=== PATIENT | male | born 1960 | race Caucasian/White ===

== ENCOUNTER 2023-06-26 12:08 | Outpatient (AMB) | payer OTHER, SELFPAY ==
--- NOTE | 2023-06-26 12:18 | HO.NEPHOV_ITS ---
HPI HPI Comments History of Present Illness Details I had the privilege of seeing Travis in consultation for chronic kidney disease. He has been having stable serum creatinine close to 1.5 or 10 years. He has hearing deficits and has bilateral hearing aids. He denies any microscopic hematuria or proteinuria. Workup done in the past showed him to have multiple renal cysts in 1 kidney. His father had ESRD in 40s and had 3 transplants. His father's siblings also had renal diseases, the details of which is unclear. His father's mom had CKD, etiology of which is unknown. 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 He is on statins. He is on long-term PPI which he takes intermittently. He is not hypertensive and does not carry a diagnosis of diabetes. He does not take any excessive nonsteroidal anti-inflammatories. His blood pressure has been at goal but lately it is trending up. He is not taking any antihypertensive medications. He is otherwise well. He denies epistaxis, hemoptysis, hematemesis, melena, skin rashes, photosensitivity, bone pain. He is not known to have any prostatic issues. He has no history of cancer. He denies any history of coronary artery disease, congestive heart failure, CVA, SOBIA, PAD. His last serum creatinine was 1.5. His brother is known to have liver disease. [facility] Medical History (Updated 06/27/23 @ 04:04 by Rudy Osullivan MD) CKD (chronic kidney disease) Hereditary hemochromatosis Psoriasis Methylenetetrahydrofolate reductase (MTHFR) deficiency GERD (gastroesophageal reflux disease) AARON (obstructive sleep apnea) Gout Surgical History (Updated 06/26/23 @ 12:15 by Mae Copeland MA) H/O repair of rotator cuff Family History (Updated 06/26/23 @ 12:17 by Mae Copeland MA) Father Diabetes Mother Cirrhosis Paternal Grandfather Diabetes Paternal Grandmother Kidney disease Social History (Updated 06/26/23 @ 12:24 by Mae Copeland MA) Alcohol intake: former Patient Tobacco Use Status: Never used Tobacco Vital Signs 06/26/23 12:19 Height 5 ft 10 in Weight 197 lb BMI 28.3 BP 130/90 H Blood Pressure Location Lt brachial Position Sitting Pulse 74 Pulse Source Pulse Oximeter Physical Exam Vital Signs: Last Vital Signs Pulse 74 06/26/23 12:19 BP 130/90 H 06/26/23 12:19 BMI result Body Mass Index 28.3 Const Other: Has bilateral hearing aids General: comfortable and no acute distress Orientation/consciousness: patient oriented x3 HEENT Head: Yes normocephalic Mouth: Normal oral and palatal mucosa present Eyes EOM: EOMs intact bilaterally Neck Neck: Yes supple Resp Auscultation: clear to auscultation bilaterally Cardio Jugular venous distension: no JVD Rate: regular rate GI Palpation (GI): Soft to palpation Auscultation: normal bowel sounds General: Yes no CVA tenderness Back/Spine/Pelvis Back: no CVA tenderness Skin General skin exam: no rashes or lesions noted Neuro General: patient oriented x3 and moves all extremities Extrem General: Yes no pedal edema Assessment & Plan Assessment & Plan (1) CKD (chronic kidney disease) stage 3, GFR 30-59 ml/min: Code(s): N18.30 - Chronic kidney disease, stage 3 unspecified Qualifiers: Chronic kidney disease stage 3 subtype: stage 3a (GFR 45-59) Qualified Code(s): N18.31 - Chronic kidney disease, stage 3a Plan Travis has longstanding CKD. He has multiple renal cysts on 1 kidney with a serum creatinine 1.5. He has bilateral hearing aids. He is not known to have any microscopic hematuria or proteinuria. His blood pressure has been slowly going up lately. 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 Given hearing deficits and very strong family history, Alport syndrome is in the differential. He never had genetic studies to rule out Alport syndrome or polycystic kidney disease. I ordered workup today. I intend to initiate him on low-dose KYMBERLY- inhibitor with time. There is no reason to consider Farxiga or Jardiance at this moment. He should avoid nonsteroidal anti-inflammatory medications and maintain load low-sodium diet along with good hydration. I did not make any medication changes today. All his questions were answered. Follow-up given. Orders: Orders Creatinine Clearance Urine 06/26/23 N18.30 - Chronic kidney disease, stage 3 unspecified Electrolytes 06/26/23 N18.30 - Chronic kidney disease, stage 3 unspecified Calcium 06/26/23 N18.30 - Chronic kidney disease, stage 3 unspecified Blood Urea Nitrogen 06/26/23 N18.30 - Chronic kidney disease, stage 3 unspecified Immunofixation Pnl, Serum 06/26/23 N18.30 - Chronic kidney disease, stage 3 unspecified Protein Creatinine Ratio, Ur 06/26/23 N18.30 - Chronic kidney disease, stage 3 unspecified Creatinine 06/26/23 N18.30 - Chronic kidney disease, stage 3 unspecified Parathyroid Hormone Intact 06/26/23 N18.30 - Chronic kidney disease, stage 3 unspecified UA and rflx microscopic 06/26/23 N18.30 - Chronic kidney disease, stage 3 unspecified Coding Level of Care Code New Pt Level 4 (40435) Diagnoses Stage 3a chronic kidney disease N18.31 Chronic kidney disease stage 3 subtype: stage 3a (GFR 45-59) Results Reviewed Nephrology Results: No Data to Display
[2023-06-26 12:19] VITALS: BP 130/90; PULSE 74; BMI 28.3
== END 2023-06-26 13:13 | disposition home or self-care (01) ==
PROVIDERS: PCP Physician Assistant; Visit Provider Internal Medicine Nephrology
DX: N18.31 Chronic kidney disease, stage 3a (principal)
CPT/HCPCS: 99204

== ENCOUNTER → 2023-06-26 12:08 | Outpatient (BNVA) | payer OTHER, SELFPAY | PROVIDERS: PCP Physician Assistant; Visit Provider Internal Medicine Nephrology ==

== ENCOUNTER 2023-09-12 11:11 | Outpatient (REF) | payer OTHER, SELFPAY ==
[2023-09-12 13:35] LABS: Appearance Urine Clear; Color Urine Yellow; Glucose Urine UA Negative (Negative); Leukocyte Esterase Urine Negative (Negative); Nitrite Urine Negative (Negative); PH 5.5 (5.0-9.0); Urine Blood Negative (Negative); Urine Ketones Negative (Negative); Urine Protein Negative (Neg-Trace)
[2023-09-12 14:10] LABS: Anion Gap 11 (12-20); Blood Urea Nitrogen 29 mg/dL (9-16); Carbon Dioxide 23 mmol/L (22-29); Chloride 108 mmol/L (96-108); Estimated Glomerular Filt Rate 53; Potassium 4.2 mmol/L (3.3-5.1); Sodium 138 mmol/L (135-145)
[2023-09-12 14:14] LABS: Creatinine Urine 44.91 mg/dL; Total Protein Urine Random < 7 mg/dL (<12)
[2023-09-12 15:58] LABS: Parathyroid Hormone Intact 42.9 pg/mL (8.7-77.1)
[2023-09-14 16:33] LABS: IgA 207 mg/dL (70-320); IgG 892 mg/dL (600-1540); IgM 330 mg/dL (50-300)
== END 2023-09-12 11:12 | disposition home or self-care (01) ==
LOC: HO.HKASLDS 11:11
PROVIDERS: Visit Provider Internal Medicine Nephrology
DX: N18.30 Chronic kidney disease, stage 3 unspecified (principal)
CPT/HCPCS: 36415; 80051; 81003; 82310; 82565; 82570; 82784; 83970; 84156; 84520; 86334

== ENCOUNTER 2023-09-26 09:54 | Outpatient (AMB) | payer OTHER, SELFPAY ==
--- NOTE | 2023-09-26 09:54 | HO.NEPHOV_ITS ---
HPI HPI Comments History of Present Illness Details I had the privilege of seeing Travis in consultation for chronic kidney disease. He has been having stable serum creatinine close to 1.5 or 10 years. He has hearing deficits and has bilateral hearing aids. He denies any microscopic hematuria or proteinuria. Workup done in the past showed him to have multiple renal cysts in 1 kidney. His father had ESRD in 40s and had 3 transplants. His father's siblings also had renal diseases, the details of which is unclear. His father's mom had CKD, etiology of which is unknown. 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 He is on statins. He is on long-term PPI which he takes intermittently. He is not hypertensive and does not carry a diagnosis of diabetes. He does not take any excessive nonsteroidal anti-inflammatories. His blood pressure has been at goal. He is not taking any antihypertensive medications. He is otherwise well. He denies epistaxis, hemoptysis, hematemesis, melena, skin rashes, photosensitivity, bone pain. He is not known to have any prostatic issues. He has no history of cancer. He denies any history of coronary artery disease, congestive heart failure, CVA, SOBIA, PAD. His last serum creatinine was 1.5. His brother is known to have liver disease. [facility] Medical History (Updated 09/26/23 @ 10:06 by Rudy Osullivan MD) CKD (chronic kidney disease) Hereditary hemochromatosis Psoriasis Methylenetetrahydrofolate reductase (MTHFR) deficiency GERD (gastroesophageal reflux disease) AARON (obstructive sleep apnea) Gout Surgical History H/O repair of rotator cuff Family History Father Diabetes Mother Cirrhosis Paternal Grandfather Diabetes Paternal Grandmother Kidney disease Social History Alcohol intake: former Patient Tobacco Use Status: Never used Tobacco Vital Signs 09/26/23 09:55 Height 5 ft 10 in Weight 200 lb BMI 28.7 BP 120/62 Blood Pressure Location Lt brachial Position Sitting Pulse 76 Pulse Source Pulse Oximeter Pulse Oximetry (%) 96 Oxygen Delivery Method Room Air Physical Exam Vital Signs: Last Vital Signs Pulse 76 09/26/23 09:55 BP 120/62 09/26/23 09:55 Pulse Ox 96 09/26/23 09:55 Oxygen Delivery Method Room Air 09/26/23 09:55 BMI result Body Mass Index 28.7 Const General: comfortable and no acute distress Orientation/consciousness: patient oriented x3 HEENT Head: Yes normocephalic Mouth: Normal oral and palatal mucosa present Eyes EOM: EOMs intact bilaterally Neck Neck: Yes supple Resp Auscultation: clear to auscultation bilaterally Cardio Rate: regular rate GI Palpation (GI): Soft to palpation Auscultation: normal bowel sounds General: Yes no CVA tenderness Back/Spine/Pelvis Back: no CVA tenderness Skin General skin exam: no rashes or lesions noted Neuro General: patient oriented x3 and moves all extremities Extrem General: Yes no pedal edema Assessment & Plan Assessment & Plan (1) CKD (chronic kidney disease) stage 3, GFR 30-59 ml/min: Code(s): N18.30 - Chronic kidney disease, stage 3 unspecified Qualifiers: Chronic kidney disease stage 3 subtype: stage 3a (GFR 45-59) Qualified Code(s): N18.31 - Chronic kidney disease, stage 3a (2) Hypertension: Code(s): I10 - Essential (primary) hypertension Qualifiers: Hypertension type: primary hypertension Qualified Code(s): I10 - Essential (primary) hypertension Plan Travis has longstanding CKD. He has multiple renal cysts on 1 kidney with a serum creatinine 1.37. He has bilateral hearing aids. He is not known to have any microscopic hematuria or proteinuria. His blood pressure is at goal on losartan. 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 Given hearing deficits and very strong family history, Alport syndrome is in the differential. He never had genetic studies to rule out Alport syndrome or polycystic kidney disease. There is no reason to consider Farxiga or Jardiance at this moment. He should avoid nonsteroidal anti-inflammatory medications and maintain load low-sodium diet along with good hydration. I did not make any medication changes today. All his questions were answered. Follow-up given. Orders: Orders Electrolytes Today I10 - Essential (primary) hypertension, N18.30 - Chronic kidney disease, stage 3 unspecified Blood Urea Nitrogen Today I10 - Essential (primary) hypertension, N18.30 - Chronic kidney disease, stage 3 unspecified Creatinine Today I10 - Essential (primary) hypertension, N18.30 - Chronic kidney disease, stage 3 unspecified Coding Level of Care Code Est Pt Level 4 (15082) Diagnoses Stage 3a chronic kidney disease N18.31 Chronic kidney disease stage 3 subtype: stage 3a (GFR 45-59) Primary hypertension I10 Hypertension type: primary hypertension Results Reviewed Nephrology Results: Sodium 138 mmol/L (135-145) 09/12/23 Potassium 4.2 mmol/L (3.3-5.1) 09/12/23 Chloride 108 mmol/L (96-108) 09/12/23 Carbon Dioxide 23 mmol/L (22-29) 09/12/23 BUN 29 mg/dL (9-16) H 09/12/23 Creatinine 1.37 mg/dL (0.5-1.4) 09/12/23 Calcium 10.0 mg/dL (8.4-10.2) 09/12/23 PTH Intact 42.9 pg/mL (8.7-77.1) 09/12/23 Urine Protein Negative mg/dL (Neg-Trace) 09/12/23 Urine Creatinine 44.91 mg/dL 09/12/23 Protein/Creatinin Ratio TNP 09/12/23
[2023-09-26 09:55] VITALS: BP 120/62; PULSE 76; O2SAT 96; BMI 28.7
== END 2023-09-26 10:20 | disposition home or self-care (01) ==
PROVIDERS: PCP Physician Assistant; Visit Provider Internal Medicine Nephrology
DX: N18.31 Chronic kidney disease, stage 3a (principal); I10 Essential (primary) hypertension
CPT/HCPCS: 99214

== ENCOUNTER → 2023-09-26 09:54 | Outpatient (BNVA) | payer OTHER, SELFPAY | PROVIDERS: PCP Physician Assistant; Visit Provider Internal Medicine Nephrology ==

== ENCOUNTER 2024-01-30 09:58 | Outpatient (AMB) | payer OTHER, SELFPAY ==
--- NOTE | 2024-01-30 10:06 | HO.NEPHOV ---
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 He has been having stable serum creatinine close to 1.5 or 10 years. He has hearing deficits and has bilateral hearing aids. He denies any microscopic hematuria or proteinuria. Workup done in the past showed him to have multiple renal cysts in 1 kidney. His father had ESRD in 40s and had 3 transplants. His father's siblings also had renal diseases, the details of which is unclear. His father's mom had CKD, etiology of which is unknown. 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 He is on statins. He is on long-term PPI which he takes intermittently. He is not hypertensive and does not carry a diagnosis of diabetes. He does not take any excessive nonsteroidal anti-inflammatories. His blood pressure has been at goal. He is not taking any antihypertensive medications. He is otherwise well. He denies epistaxis, hemoptysis, hematemesis, melena, skin rashes, photosensitivity, bone pain. He is not known to have any prostatic issues. He has no history of cancer. He denies any history of coronary artery disease, congestive heart failure, CVA, SOBIA, PAD. His last serum creatinine was 1.5. His brother is known to have liver disease.Ig M levels 330 which is going to be repeated. He has been having gout flares on the left first MCP joint [facility] Medical History (Updated 01/30/24 @ 10:35 by Rudy Osullivan MD) CKD (chronic kidney disease) Hereditary hemochromatosis Psoriasis Methylenetetrahydrofolate reductase (MTHFR) deficiency GERD (gastroesophageal reflux disease) AARON (obstructive sleep apnea) Gout Surgical History H/O repair of rotator cuff Family History Father Diabetes Mother Cirrhosis Paternal Grandfather Diabetes Paternal Grandmother Kidney disease Social History Alcohol intake: former Patient Tobacco Use Status: Never used Tobacco Physical Exam Vital Signs: Last Vital Signs Pulse 75 01/30/24 10:07 BP 118/70 01/30/24 10:07 Pulse Ox 95 01/30/24 10:07 Oxygen Delivery Method Room Air 01/30/24 10:07 BMI result Body Mass Index 27.5 Const General: comfortable and no acute distress Orientation/consciousness: patient oriented x3 HEENT Head: Yes normocephalic Mouth: Normal oral and palatal mucosa present Eyes EOM: EOMs intact bilaterally Neck Neck: Yes supple Resp Auscultation: clear to auscultation bilaterally Cardio Jugular venous distension: no JVD Rate: regular rate GI Palpation (GI): Soft to palpation Auscultation: normal bowel sounds General: Yes no CVA tenderness Back/Spine/Pelvis Back: no CVA tenderness Skin General skin exam: no rashes or lesions noted Neuro General: patient oriented x3 and moves all extremities Extrem General: Yes no pedal edema Results Reviewed Nephrology Results: Sodium 138 mmol/L (135-145) 09/12/23 Potassium 4.2 mmol/L (3.3-5.1) 09/12/23 Chloride 108 mmol/L (96-108) 09/12/23 Carbon Dioxide 23 mmol/L (22-29) 09/12/23 BUN 29 mg/dL (9-16) H 09/12/23 Creatinine 1.37 mg/dL (0.5-1.4) 09/12/23 Calcium 10.0 mg/dL (8.4-10.2) 09/12/23 PTH Intact 42.9 pg/mL (8.7-77.1) 09/12/23 Urine Protein Negative mg/dL (Neg-Trace) 09/12/23 Urine Creatinine 44.91 mg/dL 09/12/23 Protein/Creatinin Ratio TNP 09/12/23 Assessment & Plan Assessment & Plan (1) CKD (chronic kidney disease) stage 3, GFR 30-59 ml/min: Code(s): N18.30 - Chronic kidney disease, stage 3 unspecified Category: Medical Qualifiers: Chronic kidney disease stage 3 subtype: stage 3a (GFR 45-59) Qualified Code(s): N18.31 - Chronic kidney disease, stage 3a (2) Hypertension: Code(s): I10 - Essential (primary) hypertension Category: Medical Qualifiers: Hypertension type: primary hypertension Qualified Code(s): I10 - Essential (primary) hypertension (3) Gout attack: Code(s): M10.9 - Gout, unspecified Category: Medical Qualifiers: Gout site: toe Gout etiology: idiopathic Laterality: left Qualified Code(s): M10.072 - Idiopathic gout, left ankle and foot Plan Travis has longstanding CKD. He has multiple renal cysts on 1 kidney with a serum creatinine 1.36. He has bilateral hearing aids. He is not known to have any microscopic hematuria or proteinuria. His blood pressure is at goal on losartan. 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 Given hearing deficits and very strong family history, Alport syndrome is in the differential. He never had genetic studies to rule out Alport syndrome or polycystic kidney disease. There is no reason to consider Farxiga or Jardiance at this moment. He should avoid nonsteroidal anti-inflammatory medications and maintain load low-sodium diet along with good hydration. I started him on Allopurinol 100 mg daily which he may need a higher dose. I did not make any other medication changes today. All his questions were answered. Follow-up given. Orders: Orders Blood Urea Nitrogen Today I10 - Essential (primary) hypertension, M10.9 - Gout, unspecified, N18.31 - Chronic kidney disease, stage 3a Calcium Today I10 - Essential (primary) hypertension, M10.9 - Gout, unspecified, N18.31 - Chronic kidney disease, stage 3a Uric Acid Today I10 - Essential (primary) hypertension, M10.9 - Gout, unspecified, N18.31 - Chronic kidney disease, stage 3a Creatinine Today I10 - Essential (primary) hypertension, M10.9 - Gout, unspecified, N18.31 - Chronic kidney disease, stage 3a Electrolytes Today I10 - Essential (primary) hypertension, M10.9 - Gout, unspecified, N18.31 - Chronic kidney disease, stage 3a Medications: New allopurinol 100 mg PO DAILY 90 tabs 3RF Coding Level of Care Code Est Pt Level 4 (39231) Diagnoses Stage 3a chronic kidney disease N18.31 Chronic kidney disease stage 3 subtype: stage 3a (GFR 45-59) Primary hypertension I10 Hypertension type: primary hypertension Acute idiopathic gout involving toe of left foot M10.072 Gout site: toe Gout etiology: idiopathic Laterality: left
[2024-01-30 10:07] VITALS: BP 118/70; PULSE 75; O2SAT 95; BMI 27.5
== END 2024-01-30 10:38 | disposition home or self-care (01) ==
PROVIDERS: PCP Physician Assistant; Visit Provider Internal Medicine Nephrology
DX: N18.31 Chronic kidney disease, stage 3a (principal); I10 Essential (primary) hypertension; M10.072 Idiopathic gout, left ankle and foot
CPT/HCPCS: 99214

== ENCOUNTER → 2024-01-30 09:58 | Outpatient (BNVA) | payer OTHER, SELFPAY | PROVIDERS: PCP Physician Assistant; Visit Provider Internal Medicine Nephrology ==

== ENCOUNTER 2024-07-11 10:56 | Outpatient (AMB) | payer OTHER, SELFPAY ==
--- NOTE | 2024-07-11 11:01 | HO.NEPHOV_ITS ---
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 He has been having stable serum creatinine close to 1.5 or 10 years. He has hearing deficits and has bilateral hearing aids. He denies any microscopic hematuria or proteinuria. Workup done in the past showed him to have multiple renal cysts in 1 kidney. His father had ESRD in 40s and had 3 transplants. His father's siblings also had renal diseases, the details of which is unclear. His father's mom had CKD, etiology of which is unknown. 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 He is on statins. He is on long-term PPI which he takes intermittently. He is not hypertensive and does not carry a diagnosis of diabetes. He does not take any excessive nonsteroidal anti-inflammatories. His blood pressure has been at goa l. He is not taking any antihypertensive medications. He is otherwise well. He denies epistaxis, hemoptysis, hematemesis, melena, skin rashes, photosensitivity, bone pain. He is not known to have any prostatic issues. He has no history of cancer. He denies any history of coronary artery disease, congestive heart failure, CVA, SOBIA, PAD. His last serum creatinine was 1.5. His brother is known to have liver disease.Ig M levels 330 which is going to be repeated. He has been having no gout flares [facility] Medical History (Updated 01/30/24 @ 10:35 by Rudy Osullivan MD) CKD (chronic kidney disease) Hereditary hemochromatosis Psoriasis Methylenetetrahydrofolate reductase (MTHFR) deficiency GERD (gastroesophageal reflux disease) AARON (obstructive sleep apnea) Gout Surgical History H/O repair of rotator cuff Family History Father Diabetes Mother Cirrhosis Paternal Grandfather Diabetes Paternal Grandmother Kidney disease Social History Alcohol intake: former Patient Tobacco Use Status: Never used Tobacco Review of Systems Const All systems reviewed & are unremarkable except as noted in HPI and below Physical Exam Vital Signs: Last Vital Signs Pulse 75 07/11/24 11:02 BP 112/74 07/11/24 11:02 Pulse Ox 97 07/11/24 11:02 Oxygen Delivery Method Room Air 07/11/24 11:02 BMI result Body Mass Index 28.5 Const General: comfortable and no acute distress Orientation/consciousness: patient oriented x3 HEENT Head: Yes normocephalic Mouth: Normal oral and palatal mucosa present Eyes EOM: EOMs intact bilaterally Neck Neck: Yes supple Resp Auscultation: clear to auscultation bilaterally Cardio Jugular venous distension: no JVD Rate: regular rate GI Palpation (GI): Soft to palpation Auscultation: normal bowel sounds General: Yes no CVA tenderness Back/Spine/Pelvis Back: no CVA tenderness Skin General skin exam: no rashes or lesions noted Neuro General: patient oriented x3 and moves all extremities Extrem General: Yes no pedal edema Assessment & Plan Assessment & Plan (1) CKD (chronic kidney disease) stage 3, GFR 30-59 ml/min: Code(s): N18.30 - Chronic kidney disease, stage 3 unspecified Category: Medical Qualifiers: Chronic kidney disease stage 3 subtype: stage 3a (GFR 45-59) Qualified Code(s): N18.31 - Chronic kidney disease, stage 3a (2) Hypertension: Code(s): I10 - Essential (primary) hypertension Category: Medical Qualifiers: Hypertension type: primary hypertension Qualified Code(s): I10 - Essential (primary) hypertension Plan Travis has longstanding CKD. He has multiple renal cysts on 1 kidney with a serum creatinine 1.46. He has bilateral hearing aids. He is not known to have any microscopic hematuria or proteinuria. His blood pressure is at goal on losartan. 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 Given hearing deficits and very strong family history, Alport syndrome was in the differential. He never had genetic studies to rule out Alport syndrome or polycystic kidney disease. There is no reason to consider Jardiance at this moment but may be a candidate as he is a pre diabetic. He should avoid nonsteroidal anti- inflammatory medications and maintain load low-sodium diet along with good hydration. He can continue on Allopurinol 100 mg daily. I did not make any other medication changes today. All his questions were answered. Follow-up given Orders: Orders Blood Urea Nitrogen 6 Months I10 - Essential (primary) hypertension, N18.31 - Chronic kidney disease, stage 3a Creatinine 6 Months I10 - Essential (primary) hypertension, N18.31 - Chronic kidney disease, stage 3a Electrolytes 6 Months I10 - Essential (primary) hypertension, N18.31 - Chronic kidney disease, stage 3a Protein Creatinine Ratio, Ur 6 Months I10 - Essential (primary) hypertension, N18.31 - Chronic kidney disease, stage 3a Coding Level of Care Code Est Pt Level 4 (01244) Diagnoses Stage 3a chronic kidney disease N18.31 Chronic kidney disease stage 3 subtype: stage 3a (GFR 45-59) Primary hypertension I10 Hypertension type: primary hypertension
[2024-07-11 11:02] VITALS: BP 112/74; PULSE 75; O2SAT 97; BMI 28.5
== END 2024-07-11 11:37 | disposition home or self-care (01) ==
PROVIDERS: PCP Physician Assistant; Visit Provider Internal Medicine Nephrology
DX: N18.31 Chronic kidney disease, stage 3a (principal); I10 Essential (primary) hypertension
CPT/HCPCS: 99214

== ENCOUNTER 2025-01-14 10:08 | Outpatient (AMB) | payer OTHER, SELFPAY ==
[2025-01-14 10:22] VITALS: BP 120/72; PULSE 78; O2SAT 95; BMI 28.3
--- NOTE | 2025-01-14 10:22 | HO.NEPHOV ---
Vital Signs 01/14/25 10:22 Height 5 ft 10 in Weight 197 lb BMI 28.3 BP 120/72 Blood Pressure Location Lt brachial Position Sitting Pulse 78 Pulse Source Pulse Oximeter Pulse Oximetry (%) 95 Oxygen Delivery Method Room Air Intake Visit Reasons: 6 mnts f/u-Conf Content Writer Required: No Accompanied by: Self / Same As Patient Allergies latex Allergy (Verified 01/14/25 10:24) Unknown HPI Comments Details: I had the privilege of seeing Travis in follow up for chronic kidney disease. He has been having stable serum creatinine close to 1.5 or 10 years. He has hearing deficits and has bilateral hearing aids. He denies any microscopic hematuria or proteinuria. Workup done in the past showed him to have multiple renal cysts in 1 kidney. His father had ESRD in 40s and had 3 transplants. His father's siblings also had renal diseases, the details of which is unclear. His father's mom had CKD, etiology of which is unknown. 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 He is on statins. He is on long-term PPI which he takes intermittently. He is not hypertensive and does not carry a diagnosis of diabetes. He does not take any excessive nonsteroidal anti-inflammatories. His blood pressure has been at goal. He is not taking any antihypertensive medications. He is otherwise well. He denies epistaxis, hemoptysis, hematemesis, melena, skin rashes, photosensitivity, bone pain. He is not known to have any prostatic issues. He has no history of cancer. He denies any history of coronary artery disease, congestive heart failure, CVA, SOBIA, PAD. His last serum creatinine was 1.5. His brother is known to have liver disease.Ig M levels 330 which is going to be repeated. He has been having no gout flares. He is going to be on a medication for psoriatic arthritis [facility] Medical History (Updated 08/08/24 @ 16:00 by Mae Copeland MA) Elevated lipoprotein(a) CKD (chronic kidney disease) Hereditary hemochromatosis Psoriasis Methylenetetrahydrofolate reductase (MTHFR) deficiency GERD (gastroesophageal reflux disease) AARON (obstructive sleep apnea) Gout Surgical History H/O repair of rotator cuff Family History Father Diabetes Mother Cirrhosis Paternal Grandfather Diabetes Paternal Grandmother Kidney disease Social History Alcohol intake: former Patient Tobacco Use Status: Never used Tobacco Review of Systems Const All systems reviewed & are unremarkable except as noted in HPI and below Physical Exam Vital Signs: Last Vital Signs Pulse 78 01/14/25 10:22 BP 120/72 01/14/25 10:22 Pulse Ox 95 01/14/25 10:22 Oxygen Delivery Method Room Air 01/14/25 10:22 BMI result Body Mass Index 28.3 Const General: comfortable and no acute distress Orientation/consciousness: patient oriented x3 HEENT Head: Yes normocephalic Mouth: Normal oral and palatal mucosa present Eyes EOM: EOMs intact bilaterally Neck Neck: Yes supple Resp Auscultation: clear to auscultation bilaterally Cardio Jugular venous distension: no JVD Rate: regular rate GI Palpation (GI): Soft to palpation Auscultation: normal bowel sounds General: Yes no CVA tenderness Back/Spine/Pelvis Back: no CVA tenderness Skin General skin exam: no rashes or lesions noted Neuro General: patient oriented x3 and moves all extremities Extrem General: Yes no pedal edema Results Reviewed Nephrology Results: Sodium, (135-145) 138 mmol/L 09/12/23 Potassium, (3.3-5.1) 4.2 mmol/L 09/12/23 Chloride, (96-108) 108 mmol/L 09/12/23 Carbon Dioxide, (22-29) 23 mmol/L 09/12/23 BUN, (9-16) 29 mg/dL H 09/12/23 Creatinine, (0.5-1.4) 1.37 mg/dL 09/12/23 Calcium, (8.4-10.2) 10.0 mg/dL 09/12/23 PTH Intact, (8.7-77.1) 42.9 pg/mL 09/12/23 Urine Protein, (Neg-Trace) Negative mg/dL 09/12/23 Urine Creatinine 44.91 mg/dL 09/12/23 Protein/Creatinin Ratio TNP 09/12/23 Assessment & Plan Assessment & Plan (1) CKD (chronic kidney disease) stage 3, GFR 30-59 ml/min: Code(s): N18.30 - Chronic kidney disease, stage 3 unspecified Category: Medical Qualifiers: Chronic kidney disease stage 3 subtype: stage 3a (GFR 45-59) Qualified Code(s): N18.31 - Chronic kidney disease, stage 3a (2) Hypertension: Code(s): I10 - Essential (primary) hypertension Category: Medical Qualifiers: Hypertension type: primary hypertension Qualified Code(s): I10 - Essential (primary) hypertension Plan Travis has longstanding CKD. He has multiple renal cysts on 1 kidney with a serum creatinine 1.37. He has bilateral hearing aids. He is not known to have any microscopic hematuria or proteinuria. His blood pressure is at goal on losartan. 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 Given hearing deficits and very strong family history, Alport syndrome was in the differential. He never had genetic studies to rule out Alport syndrome or polycystic kidney disease. There is no reason to consider Jardiance at this moment but may be a candidate as he is a pre diabetic. He should avoid nonsteroidal anti-inflammatory medications and maintain load low-sodium diet along with good hydration. He can continue on Allopurinol 100 mg daily. I did not make any other medication changes today. All his questions were answered. Follow-up given Orders: Orders Blood Urea Nitrogen 8 Months I10 - Essential (primary) hypertension, N18.31 - Chronic kidney disease, stage 3a Electrolytes 8 Months I10 - Essential (primary) hypertension, N18.31 - Chronic kidney disease, stage 3a Uric Acid 8 Months I10 - Essential (primary) hypertension, N18.31 - Chronic kidney disease, stage 3a Creatinine 8 Months I10 - Essential (primary) hypertension, N18.31 - Chronic kidney disease, stage 3a Coding Level of Care Code Est Pt Level 4 (92029) Diagnoses Stage 3a chronic kidney disease N18.31 Chronic kidney disease stage 3 subtype: stage 3a (GFR 45-59) Primary hypertension I10 Hypertension type: primary hypertension
--- OUTSIDE RECORDS SUMMARY | 2025-01-14 10:55 | XMS_ITS | Data Portability ---
Author Organization [facility], [facility] Address [address] [place] [address] Care Team Providers Care Tracer Powder Blender Name Role Phone JAELYN SUTHERLAND Primary Care Provider Assessment No assessment recorded. Plan of Treatment Reminders Order Date Submit Date Provider Last Modified By Organization Details Last Modified Time Details Appointments None recorded. Lab None recorded. Referral None recorded. Procedures None recorded. Surgeries None recorded. Imaging XR, shoulder, 2 or more view - room 120 2 view right shoulder 2023 024 [facility], [address] [facility], [facility] [address], [place], [address], 08:01:08 Medication Orders None recorded. Patient TargetsNo targets recorded. Patient InstructionsNo instructions recorded. Reason for Referral None Reported. Results Created Date Observation Date Name Description Value Unit Range Abnormal Flag Note LastModifiedBy Organization Detail LastModifiedTime 03/09/20 24 02/02/2023 imagi ng/di agnos tic resul t No observ ation record ed. [email or web address] Not Available 02/09 05:08:55 03/09/20 24 02/02/2023 imagi ng/di agnos tic resul t No observ ation record ed. [email or web address] Not Available 02/09 05:09:00 03/09/20 24 03/09/2024 XR, shoul joel, 2 or more view http:/ [email or web address] ?Encry pted=s hAaTro YD8dLq bEUv6g %2BXZw aYqtaq 0bqfl% 2Fg9IQ a4ajBk vP9nXo QUaueC m3YtLR FvZlgJ JJ8mAn HZtai3 5x4973 AC0KrY nSNVqW nKiQtr MwF INTERFACE [facility] [address] [facility] [address], [place], [address], 03/09/2024 10:29:35 03/09/20 24 03/09/2024 XR, pauletteul joel, 2 or more view [email or web address] ?Encry pted=s hAaTro YD8dLq bEUv6g %2BXZw aYqtaq 0bqfl% 2Fg9IQ a4ajBk vP9nXo QUaueC m3YtLR FvZlg JJ8mAn HZtai3 1a3476 AC0KrY nSNVqW nKiQtr MwF INTERFACE [facility] [address] [facility] [address], [place], [address], 03/09/2024 10:29:36 01/14/20 25 01/13/2025 XR, tara joel, 2 or more view [email or web address]:/ [email or web address] ?Encry pted=s hAaTro YD8dLq bEUv6g %2BXZw aYqtaq 0bqfl% 2Fg9IQ a4ajBk vP9nXo QUaueC m3YtLR FvZl [facility] 6z8586 AC0Kla X6AV6q gKiQtr MwF INTERFACE [facility] [place] [facility] [address] [facility] [address], [place], [address], 01/13/2025 10:56:23 01/14/20 25 01/13/2025 XR, tara joel, 2 or more view [email or web address] ?Encry pted=s hAaTro YD8dLq bEUv6g %2BXZw aYqtaq 0bqfl% 2Fg9IQ a4ajBk vP9nXo QUaueC m3YtLR FvZlgJ JJ8mAn HZtai3 2l5415 AC0Kla X6AV6q gKiQtr MwF INTERFACE [facility] [address] [facility] [address], [place], [address], 01/13/2025 10:56:24 Result Notes Documentation Provider Name and Address Organization Details Recorded Time Xr, Shoulder, 2 Or More View : [email or web address] Encrypted=fmGuQucRS8cLtwR Uv6g%5KVLiiOopht8xapj%2Fg 8FRq8gjOopP4sMzHPempVs3Xf ENQcGrfUXR3hVuNBmvd40e146 2SH7QyPuMDIbHjXiRfeYyF Not Available [facility] 03/09/2024 10:29: 35 Xr, Shoulder, 2 Or More View : [email or web address]? Encrypted=imOsZetEF5mJglP Uv6g%4UGKwnWyxcb8efgs%2Fg 9FQl6tgUxnN0pXxTCfbvKq1Rj DNAcKdoKBM7aZnRXogx98n287 0FV2UcSzLSZnAlCfGqyAwX Not Available [facility] 03/09/2024 10:29: 37 Xr, Shoulder, 2 Or More View : [email or web address] Encrypted=boHyYpmTQ5yLyuF Uv6g%5DBYyqXedpg8lhtk%2Fg 9QKa4suCiqT2nBbWHmwfWa3Iv PXJdTkvVLE7jVrIOvvj90o747 4ZY5FadL8DG3pxWuIrsItG Not Available [facility] 01/13/2025 10:56: 24 Xr, Shoulder, 2 Or More View : [email or web address] Encrypted=xcAaRtlXD0nXvkB Uv6g%6DQYffLcybt0nqsx%2Fg 3MLm8rrLfuS1tLqGTgbjQa2Bk XWNgVfaHLJ6cKyQSsxh82r244 6IC4LqdJ4PI7ygKtNusAkJ Not Available Formerly [facility], [facility] 01/13/2025 10:56: 25 Problems Name Problem SNOMED Code Status Onset Date Resolution Date Notes Provider Name and Address Organization Details Recorded Time Impingement syndrome of right shoulder region 8485763478338 02 Active 2023 Satish Torrez PA-C [address], [place], [address], [facility] 4 07:12:35 Pain of right shoulder joint 2890996379153 9100 Active 2023 Satish Torrez PA-C [address], [facility] [place], [address], [facility] 4 10:17:56 Problem Notes None recorded. Procedures Surgical History Date Name Laterality Status Provider Name and Address Organization Details Recorded Time 3 Shoulder Surgery completed Vicente Rodriguez [facility] 12/31/2024 11:08:56 Imaging Results None recorded. Procedure Notes None recorded. Medical Equipment None Reported. Allergies Allergen ID Allergen Name Allergen Category Reaction Reaction Severity Criticality Documentation Date Start Date Code Code System Note Provider Name and Address Organization Details Recorded Time 628371 latex environme nt,medica tion Not available Not available Not available 09/11/20232022 26321 91 RxNorm Not Available [facility], [facility] 4 15:37:20 Medications Name Sig Start Date Stop Date Status Note LastModified by Organization Details LastModified Time trazodone 50 mg tablet TAKE 1 & 1/2 TABLETS BY MOUTH AT BEDITME 90 DAYS active Not Available Not Available No t Available allopurinol 100 mg tablet TAKE 1 TABLET BY MOUTH EVERY DAY active Not Available Not Available No t Available levothyroxi ne 25 mcg tablet 1 tablet every day by oral route. active Not Available Not Available No t Available famotidine 20 mg tablet TAKE 1 TABLET BY MOUTH TWICE A DAY FOR 30 DAYS active Not Available Not Available No t Available omeprazole ER 20 mg capsule,ext ended release Take 1 capsule every day by oral route. 01/13 completed Not Available Not Available Not Available losartan 25 mg tablet 1 tablet every day by oral route. active Not Available Not Available No t Available sertraline 25 mg tablet TAKE 1 TABLET BY MOUTH EVERY DAY FOR 30 DAYS active Not Available Not Available No t Available omeprazole 20 mg capsule,del ayed release TAKE 1 CAPSULE BY MOUTH EVERY DAY FOR 90 DAYS 01/13 completed Not Available Not Available Not Available mupirocin 2 % topical ointment APPLY 1-3X DAILY AFFECTED AREA NEEDED (ANTIBACT ERIAL). active Not Available Not Available No t Available colchicine 0.6 mg tablet TAKE 1 TABLET BY MOUTH 1-2 TIMES A DAY FOR 90 DAYS 01/13 completed Not Available Not Available Not Available mometasone 0.1 % topical cream active Not Available Not Available Not Available rosuvastati n 20 mg tablet 1 tablet every day by oral route. active Not Available Not Available No t Available oxycodone HCl-oxycodo ne-ASA as directed 1 TABLET Q 4 HOURS PRN PAIN DO NOT DRIVE WHILE TAKING THIS MEDICATIO N 01/13 completed Statu s: 'Curr ent'; Not Available Not Available Not Available Eucrisa 2 % topical ointment APPLY TO ECZEMA TWICE DAILY NEEDED active Not Available Not Available No t Available Paxlovid 150 mg-100 mg tablets in a dose pack (Moderate Renal Dose) FOLLOW PACKAGE INSERT DIRECTED ORALLY TWICE A DAY 5 DAYS 01/13 completed Not Available Not Available Not Available Vitals Date Recorded Body height Body mass index (BMI) Body weight Provider Name and Address Organization Details Last Updated DateTime 01/13/2025 180.34 cm 26.5 kg/m2 56089.55 g Saray Rodriguez [place] - [facility] 01/13/2025 10:36:31 Date Recorded Body height Body mass index (BMI) Body weight Provider Name and Address Organization Details Last Updated DateTime 03/09/2024 180.34 cm 26.5 kg/m2 19776.55 g Satish Torrez PA-C [address] [facility] [address], [place], [address], [place] - [facility] 03/09/2024 10:16:32 Social History Question Answer Notes LastModified by Organizat ion Details LastModified Time Tobacco Smoking Status Never Smoker Vicente yañez [place] - [facility] 12/31/2024 11:08:51 When Did You Quit Smoking? 16+yearssinc elastcigaret te [email or web address] Information not available 12/31/2024 What Is Your Relationship Status? Information not available 12/31/2024 How Many Years Have You Smoked Tobacco? 0 [email or web address] Information not available 12/31/2024 Sex: Male Functional Status Question Answer Note LastModified by Organizat ion Details LastModified Time How many times per week do you consume alcohol? Less than 1 time per week [email or web address] Information not available 12/31/2024 Do you use any illicit or recreational drugs? No [email or web address] Information not available 12/31/2024 Do you or have you ever used any other forms of tobacco or nicotine? No [email or web address] Information not available 12/31/2024 Do you or have you ever used e-cigarettes or vape? Never used electronic cigarettes [email or web address] Information not available 12/31/2024 Mental Status None recorded. Family History Nothing Reported. Medical History Condition Response Autoimmune disease Y Acid Reflux (GERD) Y Thyroid Problems Y Kidney/Bladder Problems Y Cholesterol Y Diabetes Y Sleep Apnea Y Past Encounters Encounter ID Performer Location Encounter Start Date Encounter Closed Date Diagnosis/Indication Diagnosis SNOMED-CT Code Diagnosis ICD10 Code Diagnosis Note [id number] [place] [address] [place] [address] 03/09/2024 10:02:39 03/26/2024 08:01:07 Impingement syndrome of right shoulder region 0486957277 25591 M75.41 Pain of ri ght shoulder joint 2414235171 6583903 M25.511 Health Concerns Section Related Observation LastModified by Organization Detai ls LastModified Time None Recorded Concern Status LastModified by Organization Details LastModified Time None Recorded Advance Directives Directive None Recorded Payers Insurance Date Sequence Insurance Name Policy Number Policy Walker Covered Member ID Walker Member ID Guarantor Name 01/13/2025 1 [facility] [id number] 1 Travis Cummings [id number] Travis Cummings Notes Date Note Type Note Provider Name and Address Organization Details Recorded Time 03/09/2024 text/html I am seeing the patient today under the supervision of Dr. Henley who was available but who did not see the patient.CLINICAL HISTORY: Patient is a 63-year-old male with chief complaint of right shoulder pain. Prior history notable for right shoulder superior capsular reconstruction with [id number]-hu-nmbu repair of infraspinatus by Dr. Arguello in 2022. Generally he reports minimal pain 0.5/10 occasionally, he reports he has been working out at the gym lifting often upwards to 40 pounds with forward elevation describes this activity in total misses highly likely to be exacerbated symptoms if he continues.PAST MEDICAL/SURGICAL HISTORYCurrent medications per intake sheet.PHYSICAL FINDINGSThe patient is well appearing, in no apparent distress, alert and oriented to person, place and time. Gait is symmetric. No significant swelling, warmth or erythema about either shoulder. Examination of the right shoulder demonstrates he initiates forward elevation with mild scapular substitution to 170 degrees, external rotation 35 degrees, internal take back pocket, negative hornblower's test, rotator cuff strength 4+/5 with external rotation. Cervical Exam demonstrates limited ROM without radicular symptoms. Peripheral, vascular, lymphatic examination, skin, neurologic coordination, reflexes, sensation are within normal limits.X-ray findings: 4 views ordered and independently reviewed previously at [facility] of the right shoulder findings include: Right shoulder findings include well-preserved glenohumeral joint, type I acromion, head remains centrally located without cephalad migration. ASSESSMENT: Status post right shoulder SCR with infraspinatus repair doing well PLAN: Today we had a long conversation about expectations, in my opinion his expectations need to be adjusted in particular his workout routine needs to be adjusted as he is likely to have recurring failure or pain if he continues lifting heavy weights out away from his body. He understands this operation is not designed for that level function is designed to allow light weight and strengthening at lower levels and a square box in front of him. I spent a good deal of time educating him about this reestablishing expectations he will follow-up going forward as symptoms require. [employer] [facility] speech recognition formal waiter/waitress software was used to create portions of this document. An attempt at proofreading has been made to minimize errors. Please call for corrections Satish Torrez PA-C [address] [place] [address] [address] [facility], [place], [address], [facility] - [facility] 03/09/2024 10:57:48
== END 2025-01-14 11:01 | disposition home or self-care (01) ==
LOC: HO.HKAS 10:09
PROVIDERS: PCP Physician Assistant; Visit Provider Internal Medicine Nephrology
DX: N18.31 Chronic kidney disease, stage 3a (principal); I10 Essential (primary) hypertension
CPT/HCPCS: 99214